=== PATIENT | female | born 1995 | race Caucasian/White ===

== ENCOUNTER 2017-09-22 14:09 | Emergency (ER) | payer MEDICARE, MEDICAID ==
[~2017-09-22] VITALS: Ht 167.6 cm; Wt 65.0 kg
[2017-09-22] MEDS ORDERED: PHEN15TA11 PO (14:44)
[2017-09-22] MEDS ORDERED: CELL500T PO (14:44)
[2017-09-22] MEDS ORDERED: HYDR-3291 PO (14:44)
[2017-09-22] MEDS ORDERED: WARF-58 PO (14:44)
[2017-09-22] MEDS ORDERED: FENT1DIS14 TD (14:44)
[2017-09-22] MEDS ORDERED: PANT40TA2 PO (14:44)
[2017-09-22] MEDS ORDERED: BACT800T5 PO (14:44)
[2017-09-22] MEDS ORDERED: GABA-283 PO (14:44)
[2017-09-22] MEDS ORDERED: DILA2TAB6 PO (14:44)
[2017-09-22] MEDS ORDERED: WELLTAB40 PO (14:44)
[2017-09-22] MEDS ORDERED: VFEN200T PO (14:44)
[2017-09-22] MEDS ORDERED: REGL5TAB2 PO (14:44)
[2017-09-22] MEDS ORDERED: DRON5CAP6 PO (14:44)
[2017-09-22] MEDS ORDERED: ACYC200C8 PO (14:44)
[2017-09-22] MEDS ORDERED: REGL10TA6 PO (14:44)
[2017-09-22] MEDS ORDERED: LEVO75TA4 PO (14:44)
[2017-09-22] MEDS ORDERED: DRIS50002 PO (14:44)
[2017-09-22] MEDS ORDERED: HYDR5TAB59 PO (14:44)
[2017-09-22] MEDS ORDERED: CALCTAB52 PO (14:44)
--- NOTE | 2017-09-22 17:34 | REP ---
Chest two views HISTORY: Shortness of breath Comparison: None The lungs are clear. The heart is normal in size. The pulmonary vasculature is normal in appearance. The patient is status post bilateral shoulder arthroplasty. IMPRESSION: No acute disease. Signed by Cy Mathews MD 09/22/2017 05:26 P
[2017-09-22] MEDS ORDERED: AUGM875T28 PO (17:57)
[2017-09-22 18:04] VITALS: BP 119/69
== END 2017-09-22 18:18 | disposition home or self-care (01) ==
LOC: M ED 14:09
DX: J32.9 Chronic sinusitis, unspecified (principal); E03.9 Hypothyroidism, unspecified; C95.91 Leukemia, unspecified, in remission; Z78.0 Asymptomatic menopausal state; Z79.899 Other long term (current) drug therapy; Z79.84 Long term (current) use of oral hypoglycemic drugs; Z88.1 Allergy status to other antibiotic agents; Z87.19 Personal history of other diseases of the digestive system; Z86.718 Personal history of other venous thrombosis and embolism; Z86.711 Personal history of pulmonary embolism; Z98.890 Other specified postprocedural states; Z87.891 Personal history of nicotine dependence

== ENCOUNTER 2017-09-25 01:04 | Emergency (ER) | payer MEDICARE, MEDICAID ==
[~2017-09-25] VITALS: Ht 167.6 cm; Wt 65.1 kg
[~2017-09-25 01:04] MED LIST: ACYC200C8 PO; AUGM875T28 PO; BACT800T5 PO; CALCTAB52 PO; CELL500T PO; DILA2TAB6 PO; DRIS50002 PO; DRON5CAP6 PO; FENT1DIS14 TD; GABA-283 PO; HYDR-3291 PO; HYDR5TAB59 PO; LEVO75TA4 PO; PANT40TA2 PO; PHEN15TA11 PO; REGL10TA6 PO; REGL5TAB2 PO; VFEN200T PO; WARF-58 PO; WELLTAB40 PO
[2017-09-25] MEDS ORDERED: NS 1,000 ML IV ONE (02:15)
[2017-09-25] MEDS ORDERED: ONDANSETRON 4MG/2ML VIAL (J2405) IV ONE (02:15)
[2017-09-25] MEDS: HYDROmorphone HCL 1 MG/ML SYRINGE (J1170) IV PRN ×6 (02:26→04:30)
[2017-09-25 02:27] LABS: BASO # 0.1 10^3/uL (0.0-0.2); BASO % 0.7 % (0.0-1.0); EOS # 0.5 10^3/uL (0.0-0.50); EOS % 5.1 % (0.0-3.0); IMMATURE GRANULOCYTE % 0.3 % (0-0); LYMPH # 1.4 10^3/uL (1.5-6.5); LYMPH % 14.8 % (24.0-44.0); MEAN CORPUSCULAR HEMOGLOBIN 28.2 pg (27.0-33.0); MEAN CORPUSCULAR HGB CONC 31.6 g/dl (32.0-36.5); MEAN CORPUSCULAR VOLUME 89.2 fl (80.0-96.0); MONO % 10.9 % (0.0-5.0); NEUTROPHILS # 6.3 10^3/uL (1.8-7.7); NEUTROPHILS % 68.2 % (36.0-66.0); PLATELET COUNT, AUTOMATED 432 10^3/uL (150-450); RED CELL DISTRIBUTION WIDTH 15.9 % (11.5-14.5); WHITE BLOOD COUNT 9.2 10^3/uL (4.0-10.0)
[2017-09-25 02:56] LABS: INR 1.51
[2017-09-25 02:57] LABS: CONTROL LINE HCG INT CTR LINE PRESENT
[2017-09-25 03:04] LABS: ALBUMIN 3.3 GM/DL (3.2-5.2); ALBUMIN/GLOBULIN RATIO 0.89 (1.00-1.93); ALKALINE PHOSPHATASE 148 U/L (45-117); ALT/SGPT 38 U/L (12-78); ANION GAP 9 MEQ/L (8-16); AST/SGOT 39 U/L (7-37); BILIRUBIN,DIRECT < 0.1 MG/DL (0.0-0.2); BILIRUBIN,TOTAL 0.1 MG/DL (0.2-1.0); BLOOD UREA NITROGEN 19 MG/DL (7-18); CALCIUM LEVEL 8.7 MG/DL (8.5-10.1); CARBON DIOXIDE LEVEL 27 MEQ/L (21-32); CHLORIDE LEVEL 104 MEQ/L (98-107); GLOMERULAR FILTRATION RATE > 60.0 (>60); GLUCOSE, FASTING 82 MG/DL (70-105); POTASSIUM SERUM 3.9 MEQ/L (3.5-5.1); SODIUM LEVEL 140 MEQ/L (136-145)
[2017-09-25] MEDS ORDERED: diphenhydrAMINE INJ 50MG/ML VIAL (J1200) IV ONE ×2 (03:15→04:30)
[2017-09-25] MEDS ORDERED: GASTROGRAFIN SOLUTION 30ML (Q9963) PO ONE (03:30)
[2017-09-25] MEDS ORDERED: PROMETHAZINE INJ 25 MG/ML VIAL (J2550) IV ONE (04:45)
[2017-09-25] MEDS ORDERED: ISOVUE-370 76% 100ML VIAL (Q9967) As Ordered ONE (05:07)
--- NOTE | 2017-09-25 06:20 | REPUSA ---
CLINICAL HISTORY: Abdominal pain. TECHNIQUE: Multiple axial, sagittal and coronal CT images were obtained through the abdomen and pelvi s after administration of oral and intravenous contrast material. COMMENTS: Moderate amount of fecal residue in the large bowels. Fluid-filled small bowels in the right lower quadrant. Fluid-filled colon. Distended bladder. The liver is of uniform attenuation without mass or defect. There is no intra or extrahepatic biliary ductal dilatation. The spleen is normal. The gallbladder is within normal limits. The pancreas is of normal contour and attenuation characteristics. There is no evidence of adrenal mass. Both kidneys demonstrate prompt and equal nephrograms. The kidneys are normal in size, shape and conf iguration. There is no evidence of renal or ureteral mass. No renal or ureteral calculi are identifie d. There is no hydroureter or hydronephrosis. No evidence for appendicitis. There is no bowel wall thickening. No evidence for small or large oneil l obstruction. There is no evidence of abdominal ascites or lymphadenopathy. There is no evidence of intrinsic or extrinsic bladder mass. There is no pelvic ascites or lymphadeno mat. Images of the lung bases show no evidence of pleural or parenchymal mass. Minimal right pleural effus ion. Bilateral basilar calculus densities of the lungs. The bony structures are free of lytic or blastic lesions. IMPRESSION: Minimal right pleural effusion. Bilateral basilar groundglass densities of the lungs. Subsegmental atelectatic airspace disease versu s infectious/inflammatory pathology. Moderate amount of fecal residue in the large bowels. Fluid filled proximal colon and distal small travis wel. Ileus/developing enteritis. Thank you for your kind referral of this patient.
[2017-09-25] MEDS ORDERED: MAGNESIUM CITRATE 300 ML BTL PO ONE (06:30)
[2017-09-25 06:38] VITALS: BP 102/69
--- NOTE | 2017-09-27 09:26 | ED PDOC ---
Post-Departure Follow-Up certified letter sent to pt re formal report fo ct abd/p for fu Karla Hussein MD Sep 27, 2017 09:26
== END 2017-09-25 06:43 | disposition home or self-care (01) ==
LOC: M ED 01:04
DX: K59.01 Slow transit constipation (principal); Z79.2 Long term (current) use of antibiotics; Z79.899 Other long term (current) drug therapy; Z79.84 Long term (current) use of oral hypoglycemic drugs; Z88.1 Allergy status to other antibiotic agents
CPT/HCPCS: 74177; 80048; 80076; 81001; 83690; 84703; 85025; 85610; 85730; 93041; 96374; 96375; 99284; J1170; J1200; J2405; Q9963; Q9967

== ENCOUNTER 2017-11-19 23:06 | Emergency (ER) | payer MEDICARE, MEDICAID ==
[2017-11-20] MEDS: KETOROLAC 60 MG/2 ML VIAL (J1885) IM (05:47)
== END 2017-11-20 06:57 | disposition home or self-care (01) ==
LOC: M ED 23:06
DX: S39.012A Strain of muscle, fascia and tendon of lower back, initial encounter (principal); W19.XXXA Unspecified fall, initial encounter; Y92.89 Other specified places as the place of occurrence of the external cause; Y93.89 Activity, other specified; Y99.8 Other external cause status; C92.01 Acute myeloblastic leukemia, in remission; F11.20 Opioid dependence, uncomplicated; K21.9 Gastro-esophageal reflux disease without esophagitis; Z79.84 Long term (current) use of oral hypoglycemic drugs; Z79.2 Long term (current) use of antibiotics; Z79.899 Other long term (current) drug therapy; Z88.1 Allergy status to other antibiotic agents; Z86.711 Personal history of pulmonary embolism; Z87.891 Personal history of nicotine dependence
CPT/HCPCS: J1885

== ENCOUNTER → 2017-11-29 | Outpatient (CLI) | payer MEDICARE, MEDICAID ==
[2017-11-29 14:39] LABS: BASO # 0.1 10^3/uL (0.0-0.2); BASO % 0.7 % (0.0-1.0); EOS # 0.1 10^3/uL (0.0-0.50); HEMOGLOBIN 10.5 g/dl (12.0-16.0); IMMATURE GRANULOCYTE % 0.3 % (0-0); LYMPH % 13.4 % (24.0-44.0); MEAN CORPUSCULAR HEMOGLOBIN 29.2 pg (27.0-33.0); MEAN CORPUSCULAR HGB CONC 32.8 g/dl (32.0-36.5); MEAN CORPUSCULAR VOLUME 88.9 fl (80.0-96.0); MONO # 0.7 10^3/uL (0.0-0.8); MONO % 10.1 % (0.0-5.0); NEUTROPHILS # 5.3 10^3/uL (1.8-7.7); NEUTROPHILS % 74.5 % (36.0-66.0); PLATELET COUNT, AUTOMATED 415 10^3/uL (150-450); RED CELL DISTRIBUTION WIDTH 16.2 % (11.5-14.5); WHITE BLOOD COUNT 7.1 10^3/uL (4.0-10.0)
[2017-11-29 14:41] LABS: APPEARANCE, URINE CLEAR (CLEAR); BACTERIA, URINE AUTO NEGATIVE (NEGATIVE); BILIRUBIN, URINE AUTO NEGATIVE (NEGATIVE); BLOOD, URINE BLOOD NEGATIVE (NEGATIVE); COLOR, URINE YELLOW (YELLOW); GLUCOSE, URINE (UA) AUTO NEGATIVE (NEGATIVE); KETONE, URINE AUTO NEGATIVE (NEGATIVE); LEUKOCYTE ESTERASE, URINE AUTO 1+ (NEGATIVE); NITRITE, URINE AUTO NEGATIVE (NEGATIVE); PROTEIN, URINE AUTO NEGATIVE (NEGATIVE); RBC, URINE AUTO 1 /HPF (0-3); SPECIFIC GRAVITY URINE AUTO 1.015 (1.002-1.035); SQUAMOUS EPITHELIAL CELL UR AU 0 /HPF (0-6); UROBILINOGEN, URINE AUTO 0.2 mg/dL (0.0-2.0); WBC, URINE AUTO 1 /HPF (0-3)
[2017-11-29 14:53] LABS: ALBUMIN 3.7 GM/DL (3.2-5.2); ALBUMIN/GLOBULIN RATIO 1.16 (1.00-1.93); ALKALINE PHOSPHATASE 144 U/L (45-117); ALT/SGPT 27 U/L (12-78); ANION GAP 9 MEQ/L (8-16); AST/SGOT 31 U/L (7-37); BILIRUBIN,TOTAL 0.1 MG/DL (0.2-1.0); BLOOD UREA NITROGEN 24 MG/DL (7-18); CALCIUM LEVEL 9.2 MG/DL (8.5-10.1); CARBON DIOXIDE LEVEL 25 MEQ/L (21-32); CHLORIDE LEVEL 105 MEQ/L (98-107); CREATININE FOR GFR 1.25 MG/DL (0.55-1.02); GLOMERULAR FILTRATION RATE 56.5 (>60); GLUCOSE, FASTING 69 MG/DL (70-100); POTASSIUM SERUM 4.7 MEQ/L (3.5-5.1); SODIUM LEVEL 139 MEQ/L (136-145); TOTAL PROTEIN 6.9 GM/DL (6.4-8.2)
== END ==
LOC: M LAB 13:31
DX: Z94.81 Bone marrow transplant status (principal); Z79.899 Other long term (current) drug therapy
CPT/HCPCS: 80053

== ENCOUNTER 2017-12-23 23:24 | Emergency (ER) | payer MEDICARE, MEDICAID ==
[2017-12-24 00:37] LABS: BASO % 0.5 % (0.0-1.0); EOS # 0.2 10^3/uL (0.0-0.50); EOS % 2.1 % (0.0-3.0); HEMATOCRIT 34.1 % (36.0-47.0); HEMOGLOBIN 11.2 g/dl (12.0-16.0); IMMATURE GRANULOCYTE % 0.3 % (0-3.0); LYMPH # 1.9 10^3/uL (1.5-6.5); LYMPH % 24.8 % (24.0-44.0); MEAN CORPUSCULAR HEMOGLOBIN 29.1 pg (27.0-33.0); MEAN CORPUSCULAR HGB CONC 32.8 g/dl (32.0-36.5); MEAN CORPUSCULAR VOLUME 88.6 fl (80.0-96.0); MONO # 0.7 10^3/uL (0.0-0.8); MONO % 8.9 % (0.0-5.0); NEUTROPHILS # 4.9 10^3/uL (1.8-7.7); NEUTROPHILS % 63.4 % (36.0-66.0); PLATELET COUNT, AUTOMATED 503 10^3/uL (150-450); RED BLOOD COUNT 3.85 10^6/uL (4.00-5.40); RED CELL DISTRIBUTION WIDTH 15.2 % (11.5-14.5); WHITE BLOOD COUNT 7.7 10^3/uL (4.0-10.0)
[2017-12-24 00:38] LABS: KETONE, URINE AUTO RFX NEGATIVE (NEGATIVE); LEUKOCYTE ESTERASE UR AUTO RFX NEGATIVE (NEGATIVE); MUCUS, URINE RFX SMALL (NEGATIVE); NITRITE, URINE AUTO RFX NEGATIVE (NEGATIVE); RBC, URINE AUTO RFX 2 /HPF (0-3); SPECIFIC GRAVITY UR AUTO RFX 1.023 (1.002-1.035); SQUAM EPITHELIAL CELL UR AURFX 0 /HPF (0-6); WBC, URINE AUTO RFX 0 /HPF (0-3)
[2017-12-24] MEDS: ONDANSETRON 4MG/2ML VIAL (J2405) IV (00:44)
[2017-12-24] MEDS: NS 1,000 ML IV (00:44)
[2017-12-24] MEDS ORDERED: NOREPINEPHRINE 4 MG/4 ML AMP As Ordered (01:06)
[2017-12-24 01:11] LABS: INFLUENZA A AMPLIFICATION NEGATIVE (NEGATIVE); INFLUENZA B AMPLIFICATION NEGATIVE (NEGATIVE)
[2017-12-24 01:15] LABS: ANION GAP 8 MEQ/L (8-16); BLOOD UREA NITROGEN 20 MG/DL (7-18); CALCIUM LEVEL 8.7 MG/DL (8.5-10.1); CARBON DIOXIDE LEVEL 28 MEQ/L (21-32); CHLORIDE LEVEL 105 MEQ/L (98-107); CREATININE FOR GFR 0.96 MG/DL (0.55-1.30); GLOMERULAR FILTRATION RATE > 60.0 (>60); GLUCOSE, FASTING 87 MG/DL (70-100); POTASSIUM SERUM 3.6 MEQ/L (3.5-5.1); SODIUM LEVEL 141 MEQ/L (136-145)
[2017-12-24] MEDS: PROMETHAZINE INJ 25 MG/ML VIAL (J2550) IV (01:15)
[2017-12-24] MEDS: MAGNESIUM CITRATE 300 ML BTL PO (02:04)
== END 2017-12-24 02:07 | disposition home or self-care (01) ==
LOC: M ED 23:24
DX: K59.00 Constipation, unspecified (principal); E86.0 Dehydration; Z79.890 Hormone replacement therapy; Z79.01 Long term (current) use of anticoagulants; Z79.899 Other long term (current) drug therapy; Z88.1 Allergy status to other antibiotic agents
CPT/HCPCS: J2405

== ENCOUNTER 2018-03-29 22:49 | Emergency (ER) | payer OTHER, MEDICARE, MEDICAID ==
[2018-03-30] MEDS: ACETAMINOPHEN 325 MG TAB PO (00:19)
[2018-03-30] MEDS: PROMETHAZINE INJ 25 MG/ML VIAL (J2550) IM (00:19)
== END 2018-03-30 01:48 | disposition home or self-care (01) ==
LOC: M ED 22:49
DX: S00.03XA Contusion of scalp, initial encounter (principal); S16.1XXA Strain of muscle, fascia and tendon at neck level, initial encounter; V43.52XA Car driver injured in collision with other type car in traffic accident, initial encounter; Y92.410 Unspecified street and highway as the place of occurrence of the external cause; Y93.9 Activity, unspecified; Y99.9 Unspecified external cause status; Z86.711 Personal history of pulmonary embolism; Z86.718 Personal history of other venous thrombosis and embolism; C92.00 Acute myeloblastic leukemia, not having achieved remission; Z94.81 Bone marrow transplant status; Z79.01 Long term (current) use of anticoagulants; Z79.899 Other long term (current) drug therapy; Z88.1 Allergy status to other antibiotic agents
CPT/HCPCS: 70450

== ENCOUNTER 2018-06-08 00:20 | Emergency (ER) | payer MEDICARE, MEDICAID, OTHER | END 2018-06-08 01:09 | disposition home or self-care (01) | LOC: M ED 00:20 | DX: F11.23 Opioid dependence with withdrawal (principal); E07.9 Disorder of thyroid, unspecified; K21.9 Gastro-esophageal reflux disease without esophagitis; Z86.718 Personal history of other venous thrombosis and embolism; Z79.899 Other long term (current) drug therapy; Z79.890 Hormone replacement therapy; Z88.1 Allergy status to other antibiotic agents | CPT/HCPCS: 99283 ==